=== PATIENT | male | born 1990 | race Two or more races ===

== ENCOUNTER 2022-08-18 09:57 | Emergency (ER) | payer OTHER, MEDICAID ==
[~2022-08-18] VITALS: Ht 175.3 cm; Wt 104.5 kg
[2022-08-18 11:11] VITALS: BP 122/82
[2022-08-18] MEDS ORDERED: HYDROcodone-ACET 5/325MG TAB PO ONE (11:30)
[2022-08-18] MEDS ORDERED: IBUP1TAB5 PO (11:59)
== END 2022-08-18 11:59 | disposition home or self-care (01) ==
LOC: ER 09:57
DX: S42.002A Fracture of unspecified part of left clavicle, initial encounter for closed fracture (principal); V86.96XA Unspecified occupant of dirt bike or motor/cross bike injured in nontraffic accident, initial encounter; Y93.89 Activity, other specified; Y92.89 Other specified places as the place of occurrence of the external cause; Y99.8 Other external cause status
CPT/HCPCS: 73030; 73070